=== PATIENT | female | born 1980 | race Caucasian/White ===

== ENCOUNTER 2018-04-25 16:44 | Emergency (ER) | payer OTHER ==
[2018-04-25 18:09] VITALS: BP 126/87
--- NOTE | 2018-04-25 18:40 | UC ---
Throat Pain/Nasal Zhao HPI - HPI Summary HPI Summary: Pt presents with c/o sore throat, chest tightness, CYR generalized fatigue that has been "on and off" X 2 weeks. Denies fever, chills, nasal congestion, cough or SOB. - History of Current Complaint Chief Complaint: UCChestPain Stated Complaint: THROAT/CHEST COMPLAINT Time Seen by Provider: 04/25/18 17:56 Hx Obtained From: Patient Hx Last Menstrual Period: 04/08/18 ?: No Onset/Duration: Sudden Onset, Lasting Days, Still Present Severity: Mild Pain Intensity: 5 Cough: None Associated Signs & Symptoms: Positive: Negative - Epiglottits Risk Factors Epiglottis Risk Factors: Negative - Allergies/Home Medications Allergies/Adverse Reactions: Allergies Allergy/AdvReac Type Severity Reaction Status Date / Time seasonal Allergy Eyes Uncoded 04/25/18 18:10 Itchy/Swollen/Red/Watery Home Medications: Home Medications Anti Anxiety Starting With B 1 tab PO BID 04/25/18 [History Confirmed 04/25/18] Nuvaring 1 unit VAGINAL DAILY 04/25/18 [History Confirmed 04/25/18] PMH/Surg Hx/FS Hx/Imm Hx Previously Healthy: Yes - Surgical History Surgical History: None - Family History Known Family History: Positive: Cardiac Disease - Social History Occupation: Employed Full-time Lives: With Family Alcohol Use: Weekly Alcohol Amount: 5 Substance Use Type: None Smoking Status (MU): Never Smoked Tobacco Have You Smoked in the Last Year: No Review of Systems Constitutional: Fatigue Skin: Negative Eyes: Negative ENT: Sore Throat Respiratory: Negative Cardiovascular: Chest Pain Gastrointestinal: Negative Genitourinary: Negative Motor: Negative Neurovascular: Negative Musculoskeletal: Myalgia Neurological: Headache Psychological: Negative Is Patient Immunocompromised?: No All Other Systems Reviewed And Are Negative: Yes Physical Exam Triage Information Reviewed: Yes Appearance: Well-Appearing Vital Signs: Initial Vital Signs Temp 97.5 F 04/25/18 17:48 Pulse 57 04/25/18 17:48 Resp 18 04/25/18 17:48 BP 126/87 04/25/18 17:48 Pulse Ox 100 04/25/18 17:48 Vital Signs Reviewed: Yes Eye Exam: Normal ENT: Positive: TM bulging, Sinus tenderness Dental Exam: Normal Neck exam: Normal Respiratory Exam: Normal Cardiovascular Exam: Normal, Other - c/o mild discomfort with palpation of anterior chest wall. Musculoskeletal Exam: Normal Neurological Exam: Normal Psychological Exam: Normal Skin Exam: Normal Throat Pain/Nasal Course/Dx - Differential Dx/Diagnosis Differential Diagnosis/HQI/PQRI: Pharyngitis, Sinusitis, URI Provider Diagnoses: sinusitis. chest pain Discharge - Sign-Out/Discharge Documenting (check all that apply): Patient Departure All imaging exams completed and their final reports reviewed: No Studies - Discharge Plan Condition: Stable Disposition: HOME Prescriptions: Amoxicillin PO (*) [Amoxicillin 875 MG (*)] 875 mg PO Q12H #20 tab guaiFENesin ER TAB [Mucinex*] 600 mg PO Q12H #20 tab Patient Education Materials: Chest Pain (ED), Sinusitis (ED) Referrals: Beverley Bravo [Primary Care Provider] - If Needed - Billing Disposition and Condition Condition: STABLE Disposition: Home - Attestation Statements Document Initiated by Scribe: No Provider Attestation: I was available for consult. This patient was seen by the COLIN. The patient was not presented to, seen by, or examined by me. -Tatianna
== END 2018-04-25 18:53 | disposition home or self-care (01) ==
LOC: UCCORT 16:44
DX: J32.9 Chronic sinusitis, unspecified (principal); R07.9 Chest pain, unspecified
CPT/HCPCS: 87651; 93005; 99212; G0463